=== PATIENT | female | born 1950 | race Caucasian/White ===

== ENCOUNTER 2020-09-05 12:37 | Emergency (ER) | payer MEDICARE ==
[~2020-09-05] VITALS: Ht 167.6 cm; Wt 76.2 kg
[2020-09-05] MEDS ORDERED: METFORMIN HCL500 M3 PO (13:06)
[2020-09-05] MEDS ORDERED: NORVASC10 MG PO (13:06)
[2020-09-05] MEDS ORDERED: LEXAPRO20 MG PO (13:07)
[2020-09-05] MEDS ORDERED: COZAAR 25 MG TA25 M2 PO (13:07)
[2020-09-05 13:22] LABS: ABSOLUTE EOSINOPHILS 0.1 thou/uL (0.0-0.7); ABSOLUTE LYMPHOCYTES 0.8 thou/uL (0.8-5.3); ABSOLUTE MONOCYTES 0.4 thou/uL (0.0-1.2); ABSOLUTE NEUTROPHILS 2.7 thou/uL (1.6-8.1); HEMOGLOBIN 11.7 gm/dL (12.0-15.0); LYMPHOCYTES 20.2 %; WBC 4.1 thou/uL (4.0-11.0)
[2020-09-05 13:26] LABS: BASOPHILS 1.2 %; EOSINOPHILS 2.5 %; MCH 31.4 pg (26.0-34.0); MCHC 34.4 g/dL (28.0-37.0); MCV 91.2 fL (80.0-100.0); MONOCYTES 10.6 %; NUCLEATED RBCS 0 /100WBC; PLATELET COUNT* 173 thou/uL (150-400); POLYS 65.5 %; RBC 3.72 mil/uL (4.20-5.00); RDW-CV 13.3 % (10.5-14.5)
[2020-09-05 13:31] LABS: CALCIUM 9.3 mg/dL (8.5-10.1); CREATININE 1.1 mg/dL (0.6-1.3); POTASSIUM 4.5 mmol/L (3.5-5.1)
[2020-09-05 13:38] LABS: URINE BILIRUBIN NEGATIVE (Negative); URINE BLOOD 1+ (Negative); URINE CLARITY CLEAR; URINE COLOR YELLOW; URINE GLUCOSE-RANDOM NEGATIVE (Negative); URINE KETONES NEGATIVE (Negative); URINE PROTEIN NEGATIVE (Negative); URINE UROBILINOGEN 0.2 E.U./dl (0.2-1.0)
[2020-09-05 13:42] LABS: ALBUMIN 3.6 g/dL (3.4-5.0); TOTAL BILIRUBIN 0.7 mg/dL (<0.1-1.0); TOTAL PROTEIN 7.3 g/dL (6.4-8.2)
[2020-09-05 13:42] LABS: URINE LEUKOCYTES-REFLEX 3+ (Negative); URINE NITRITE-REFLEX POSITIVE (Negative)
[2020-09-05 13:51] LABS: SQUAMOUS 4-10 Moderate /LPF (0-3); URINE WBC-REFLEX >25 Many /HPF (0-5)
[2020-09-05 13:52] LABS: BACTERIA-REFLEX >30 Many /HPF (None Seen); CASTS None Seen /LPF (None Seen); CRYSTALS None Seen /LPF (None Seen); MUCUS None Seen strn/LPF (None Seen); URINE RBC 3-10 Few /HPF (0-2)
[2020-09-05] MEDS ORDERED: KEFLEX500 M1 PO (14:26)
[2020-09-05 15:31] VITALS: BP 115/64
--- NOTE | 2020-09-05 16:18 | EKG ---
[place] [address] ELECTROCARDIOGRAM REPORT Name: HENRIQUE CAMACHO Room: [facility]#: [id number] Admission: 09/05/20 Attend Phys: Discharge: 09/05/20 Date of : 50 Date of Service: 09/05/20 1304 Report #: [id number] THIS REPORT FOR: //name// [facility] ED Test Date: 2020-09-05 Test Time: 13:04:38 Pat Name: HENRIQUE CAMACHO Department: Room: Gender: F Research Program Assistant: PEPE : 1950 Requested By: Claudine Trinh Order Number: [id number] MD: Jose F Prakash Measurements Intervals Tea Rate: 76 P: 67 CA: 146 QRS: 33 QRSD: 97 T: 63 QT: 372 QTc: 419 Interpretive Statements Sinus rhythm artifact noted Baseline wander in lead(s) I,II No previous ECG available for comparison Electronically Signed On 09-05-2020 16:18:42 CDT by Jose F Prakash [email or web address] <ELECTRONICALLY SIGNED> By: Jose F Prakash MD, [facility] 09/05/20 1618 1304 1304 Jose F Prakash MD, [facility] /EPI
== END 2020-09-05 15:32 | disposition home or self-care (01) ==
LOC: M.ERS 12:37
PROVIDERS: Physician Assistant
DX: N39.0 Urinary tract infection, site not specified (principal); R53.1 Weakness; I10 Essential (primary) hypertension; E11.9 Type 2 diabetes mellitus without complications; Z96.641 Presence of right artificial hip joint; Z98.890 Other specified postprocedural states; Z86.16 Personal history of COVID-19; Z79.899 Other long term (current) drug therapy